=== PATIENT | female | born 2000 | race Two or more races ===

== ENCOUNTER 2024-02-27 16:48 | Emergency (ER) | payer MEDICAID, SELFPAY ==
[2024-02-27 16:49] VITALS: BMI 26.0
[2024-02-27 17:12] VITALS: BP 131/78; PULSE 89; RESP 16; TEMP 37.2; O2SAT 100
--- NOTE | 2024-02-27 17:21 | XR_ITS ---
Examination: OB Transvaginal ultrasound of the pelvis, complete Technique: Transvaginal sonographic images pelvis performed using hugo scale imaging Exam date and time: February 27, 2024 1755 hours INDICATIONS: Vaginal bleeding and pelvic cramping beginning 4 days ago FINDINGS: Uterus 7.7 x 4.1 x 5.3 cm Intrauterine gestational sac 0.3 cm corresponds to 5 weeks 0 day gestational age No cardiac motion No pole Moderate free fluid in the cul-de-sac Right ovary 3.5 x 2.3 x 3.2 cm arterial flow Left ovary 3.6 x 1.8 x 2.0 cm arterial flow IMPRESSION: Empty intrauterine gestational sac corresponding to 5 weeks 0 days gestational age Recommend short-term follow-up transvaginal pelvic sonography to exclude embryonic demise
--- NOTE | 2024-02-27 17:22 | PD.EDRME ---
Rapid Medical Screening Exam RME Arrival date/time: 02/27/24 16:48 23-year-old female presents to the emergency department today complaints of vaginal spotting patient reports having sexual intercourse on the patient reports taking Plan B on the reports he went to the clinic today and she was told she is Chief Complaint: Urogenital-Female Time Seen by Provider: 02/27/24 16:52 Vital signs: Vital Signs Temperature 98.9 F 02/27/24 17:12 Pulse Rate 89 02/27/24 17:12 Respiratory Rate 16 02/27/24 17:12 Blood Pressure 131/78 H 02/27/24 17:12 Pulse Oximetry (%) 100 02/27/24 17:12 Oxygen Delivery Method Room Air 02/27/24 17:12
[2024-02-27 18:01] LABS: Basophils # (Auto) 0.1 Thou/mm3 (0.0-0.2); Basophils % (Auto) 1 % (0-2.5); Eosinophils # (Auto) 0.2 Thou/mm3 (0.0-0.5); Eosinophils % (Auto) 2 % (0-10); Hematocrit 36.9 % (36.0-46.0); Hemoglobin 12.6 g/dL (12.0-16.0); Immature Granulocytes % (Auto) 1 % (0-0); Immature Granulocytes Auto 0.06 Thou/mm3 (0.00-0.00); Lymphocytes # (Auto) 2.6 Thou/mm3 (1.0-4.8); Lymphocytes % (Auto) 27 % (10-50); Mean Corpuscular HGB Conc 34.1 g/dl (31.0-37.0); Mean Corpuscular Hemoglobin 28.9 pg (25.0-35.0); Mean Corpuscular Volume 85 fL (80-100); Monocytes # (Auto) 0.7 Thou/mm3 (0.0-0.8); Monocytes % (Auto) 7 % (0-12); Neutrophils % (Auto) 63 % (37-80); Nucleated Red Blood Cell % 0 /100 WBC (0); Platelet Count 233 Thou/mm3 (140-440); RDW Standard Deviation 39.9 fL (36.4-46.3); Red Blood Count 4.36 Miln/mm3 (4.00-5.20); White Blood Count 9.6 Thou/mm3 (3.6-11.0)
[2024-02-27 18:14] LABS: Collection Type, Urine Clean Catch
[2024-02-27 18:41] LABS: Alanine Aminotransferase 43 U/L (10-49); Albumin, Serum 4.3 gm/dL (3.5-5.0); Albumin/Globulin Ratio 1.5 (1.2-2.2); Alkaline Phosphatase 48 U/L (46-116); Anion Gap 8 (7-16); Aspartate Amino Transferase 27 U/L (0-34); BUN/Creatinine Ratio 13 Ratio (12-20); Beta HCG,Quantitative 2495 mIU/mL (<5.0); Bilirubin,Total 0.3 mg/dL (0.3-1.2); Blood Urea Nitrogen 9 mg/dL (9-23); Calcium 9.2 mg/dL (8.3-10.6); Calcium (Corrected) 9.2 mg/dL (8.5-10.1); Carbon Dioxide 22.6 mMol/L (20.0-31.0); Chloride 106 mMol/L (98-107); Creatinine (Component) 0.7 mg/dL (0.6-1.3); Estimated Creatinine Clearance 105.1 mL/min (>60); Globulin 2.8 gm/dL (2.3-3.5); Glucose 86 mg/dL (74-106); Osmolality,Calculated 271 (275-295); Potassium 3.9 mMol/L (3.4-5.1); Sodium 137 mMol/L (136-145); Total Protein 7.1 gm/dL (5.7-8.2); eGFR > 60 See Note
[2024-02-27 18:51] LABS: Bilirubin,Urine Negative (Negative); Blood,Urine 3+ (Negative); Clarity,Urine Turbid (Clear/Hazy); Color,Urine Lt-Yellow (Lt Yel-Yel); Glucose, Urine Negative (Negative); Ketones,Urine Negative (Negative); Leukocyte Esterase,Urine Negative (Negative); Nitrite,Urine Negative (Negative); Protein,Urine Negative (Neg - Trace); Urobilinogen,Urine Negative mg/dL (0.0-1.0)
[2024-02-27 18:52] LABS: Bacteria,Urine 1+; Culture Indicated,Urine Contaminated; RBC,Urine 4 /hpf (0-3); Squamous Epithelial Cell,Urine 43 /hpf (0-5); WBC,Urine 6 /hpf (0-5)
--- NOTE | 2024-02-27 19:14 | PD.EDVAGBL ---
ED OB Contraction Preg RMI/HPI General Chief complaint: Urogenital-Female Stated complaint: SPOTTING x 3 DAYS AND + PREG TEST Time Seen by Provider: 02/27/24 16:52 Arrival date/time: 02/27/24 16:48 Limitations: no limitations RME / HPI RME / HPI Narrative: 23yof presents to ED for 3 to 4-day history of vaginal spotting. + test at outside clinic today. Patient reports mild pelvic cramping. No fever, n/v, back pain or dysuria reported. No medications or treatments since symptom onset. LMP 01/24/2024. Related Data Previous Rx's ?Medication ?Instructions ?Recorded diphenhydramine HCl 25 mg capsule 25 mg PO Q8H PRN allergic symptoms 07/19/23 (Benadryl) #30 caps Allergies Allergy/AdvReac Type Severity Reaction Status Date / Time No Known Allergies Allergy Verified 02/27/24 16:51 Review of Systems Review of Systems Systems Reviewed: All systems reviewed, normal except as documented Constitutional Constitutional: Denies chills and Denies fever(s) Gastrointestinal Gastrointestinal: Denies nausea and Denies vomiting Genitourinary Genitourinary: Reports abnormal vaginal bleeding, Denies dysuria and Reports pelvic pain Musculoskeletal Musculoskeletal: Denies back pain Past Medical History Surgical History OTHER SURGICAL HX: Denies past surgical history Social History SMOKING STATUS: Never smoker SUBSTANCE USE: does not use ALCOHOL: Never Past Medical History Comments PMH COMMENT: Denies past medical history ED Exam General Limitations: Present no limitations General appearance: Present alert and in no apparent distress Head Head exam: Present atraumatic and normocephalic Eye Eye exam: Present normal appearance, PERRL and EOMI ENT ENT exam: Present normal exam and mucous membranes moist Neck Neck exam: Present normal inspection and full ROM Chest Chest inspection: Present normal inspection and symmetric chest wall rise Respiratory Respiratory exam: Present normal lung sounds bilaterally; Absent respiratory distress Cardiovascular Cardiovascular exam: Present regular rate and normal rhythm Abdominal Exam Abdominal exam: Present soft; Absent distention, tenderness, guarding or rebound Extremities Exam Extremities exam: Present normal inspection and full ROM Neurological Exam Neurological exam: Present alert and oriented X3 Psychiatric Psychiatric exam: Present normal affect and normal mood Skin Skin exam: Present warm, dry, intact and normal color Course Quality Measures none Orders Category Date Time Status US OB transvaginal Stat Exams 02/27/24 17:21 Completed ABO/RH Type Stat Lab 02/27/24 17:38 Completed Beta HCG,Quantitative Stat Lab 02/27/24 17:38 Completed CBC Stat Lab 02/27/24 17:38 Completed Comprehensive Metabolic Panel Stat Lab 02/27/24 17:38 Completed UA, C/S IF [Urinalysis, C/S if Indicated] Stat Lab 02/27/24 18:00 Completed Vital Signs Vital signs: Vital Signs Temperature 98.9 F 02/27/24 17:12 Pulse Rate 89 02/27/24 17:12 Respiratory Rate 16 02/27/24 17:12 Blood Pressure 131/78 H 02/27/24 17:12 Pulse Oximetry (%) 100 02/27/24 17:12 Oxygen Delivery Method Room Air 02/27/24 17:12 Vaginal Bleeding MDM Narrative MDM Narrative: 23yof presents to ED for 3 to 4-day history of vaginal spotting. + test at outside clinic today. Patient reports mild pelvic cramping. No fever, n/v, back pain or dysuria reported. No medications or treatments since symptom onset. LMP 01/24/2024. Patient updated on labs and imaging. Encouraged close follow-up with OB. Patient [facility] appointment at [facility] 03[facility]03/24. Recommended Tylenol prn pelvic pain. Stable for discharge, RTED precautions given. Patient data External records reviewed:: [facility] previous records (07/19/2023 ED visit for [id number]-mouth disease) Clinical information provided by:: patient Social determinants that could affect healthcare access:: none Patient has the following chronic illnesses:: None How is presenting disease/condition affected by chronic disease/condition?: no chronic disease Evaluation data The following diagnostics were reviewed and interpreted by me:: lab results and radiology exam(s) Lab and/or radiology exams considered but not ordered:: None Interpretation Summary: OB ultrasound: Early IUP per my read hCG quant: 2495 Hemoglobin: 12.6 Medications / Prescriptions Medications or Prescriptions considered but not ordered:: No antibiotics recommended at this time Medication administrations:: None Consultations Consultation(s) initiated? (list below): No Diagnosis Vaginal Bleeding Differential Diagnosis: missed , threatened and ectopic without intrauterine Most likely diagnosis given after review of the tests above:: Threatened miscarriage Admission Indicated Admission indicated?: not indicated Admission Request Was there a request for admission?: No Disposition Plan Disposition Plan: Discharge Discharge Attestation Discharge Attestation: The patient and all family members were given an opportunity to ask questions and understood the discharge instructions. Discharge instructions specifically effects, indications for sooner follow up or return to the emergency department, and the expected course of current diagnosis. Patient condition: Stable Discharge Plan Plan Patient Disposition: HOME (Self Care) Patient condition on transfer: Stable Prescriptions/Referrals Prescriptions/Med Rec: No Action diphenhydramine HCl [Benadryl] 25 mg capsule 25 mg PO Q8H PRN (Reason: allergic symptoms) Qty: 30 0RF Referrals: Valerio Mckeon MD [Primary Care Provider] - In 1 week Problem List Clinical Impression: Miscarriage, threatened, early Patient/Caregiver Discharge Instructions Education Materials: ED Possible Miscarriage ... Additional Instructions: Your hCG ( hormone)level today was 2495. Please follow-up with your OB in the following week to have this level rechecked. Print Language: Spanish Stand Alone Forms: Christy Award Info., Patient Portal Info Letter BECKIE/BITUMINOUS DISTRIBUTOR OPERATOR Supervising Physician BECKIE/JEOVANY Supervising Physician: Erin
[2024-02-27 19:55] VITALS: RESP 18
== END 2024-02-27 19:56 | disposition home or self-care (01) ==
PROVIDERS: Nurse Practitioner Primary Care; Emergency Provider Emergency Medicine; PCP Family Medicine
DX: O20.0 Threatened abortion (principal)
CPT/HCPCS: 36415; 76817; 80053; 81001; 84702; 85025; 86900; 86901; 99284

== ENCOUNTER 2024-07-23 18:40 | Emergency (ER) | payer MEDICAID, SELFPAY ==
[2024-07-23 19:34] VITALS: BP 108/69; PULSE 57; RESP 16; TEMP 37.1; O2SAT 99; BMI 23.9
--- NOTE | 2024-07-23 19:42 | EDNOTE_ITS ---
ED Extremity Problem RME/HPI General Chief complaint: Extremity Injury, Lower Stated complaint: LEFT KNEE AND RIGHT POINTER FINGER INJURY Time Seen by Provider: 07/23/24 19:05 Arrival date/time: 07/23/24 18:40 24F with no significant PMH presents to ED with several weeks of intermittent R index finger and L knee pain w/o initial fall/trauma. Patient works a lot with her R hand ([employer]) and is standing all day. Pain is more with overuse/movement. Limitations: no limitations Related Data Previous Rx's ?Medication ?Instructions ?Recorded diphenhydramine HCl 25 mg capsule 25 mg PO Q8H PRN all ergic symptoms 07/19/23 (Benadryl) #30 caps Allergies Allergy/AdvReac Type Severity Reaction Status Date / Time No Known Allergies Allergy Verified 07/23/24 18:44 Review of Systems Review of Systems Systems Reviewed: All systems reviewed, normal except as documented Constitutional Constitutional: Reports system reviewed and no additional complaints, except as documented, Denies fever(s) and Denies headache(s) ENT Ears, Nose, Mouth, and Throat: Denies disequilibrium and Denies headache(s) Cardiovascular Cardiovascular: Reports system reviewed and no additional complaints, except as documented, Denies chest pain and Denies dyspnea Respiratory Respiratory: Reports system reviewed and no additional complaints, except as documented, Denies cough and Denies dyspnea Gastrointestinal Gastrointestinal: Reports system reviewed and no additional complaints, except as documented, Denies abdominal pain, Denies nausea and Denies vomiting Musculoskeletal Musculoskeletal: Reports as per HPI and Reports arthralgias Neurologic Neurologic: Reports system reviewed and no additional complaints, except as documented, Denies confusion, Denies disequilibrium and Denies headache(s) Psychiatric Psychiatric: Denies confusion Past Medical History Past Medical History CARDIAC: Negative Congestive Heart Failure RESPIRATORY: Negative Chronic Obstructive Pulmonary Disease (COPD) GENITOURINARY: Negative Renal Disease ENDOCRINE: Negative Diabetes Mellitus Type 1 or Diabetes Mellitus Type 2 Social History SMOKING STATUS: Never smoker SUBSTANCE USE: does not use ED Exam General Limitations: Present no limitations General appearance: Present alert and in no apparent distress Head Head exam: Present atraumatic Eye Eye exam: Present normal appearance, PERRL and EOMI ENT ENT exam: Present normal exam, normal oropharynx and mucous membranes moist Neck Neck exam: Present normal inspection, full ROM and trachea midline Chest Chest inspection: Present normal inspection and symmetric chest wall rise Respiratory Respiratory exam: Present normal lung sounds bilaterally Cardiovascular Cardiovascular exam: Present regular rate, normal rhythm and normal heart sounds Abdominal Exam Abdominal exam: Present soft and normal bowel sounds Extremities Exam Extremities exam: Present normal inspection and full ROM Back Exam Back exam: Present normal inspection and full ROM Neurological Exam Neurological exam: Present alert, oriented X3 and CN II-XII intact Psychiatric Psychiatric exam: Present normal affect and normal mood Skin Skin exam: Present warm, dry, intact and normal color Course Quality Measures none Vital Signs Vital signs: Vital Signs Temperature 98.7 F 07/23/24 19:34 Pulse Rate 57 L 07/23/24 19:34 Respiratory Rate 16 07/23/24 19:34 Blood Pressure 108/69 07/23/24 19:34 Pulse Oximetry (%) 99 07/23/24 19:34 Oxygen Delivery Method Room Air 07/23/24 19:34 O2 at 99% on RA and WNLs Extremity Problem MDM Narrative MDM Narrative:: 24F with no significant PMH presents to ED with several weeks of intermittent R index finger and L knee pain w/o initial fall/trauma. Patient works a lot with her R hand ([employer]) and is standing all day. Pain is more with overuse/movement. Physical exam reveals no tenderness, redness, or swelling of L knee or R index finger. Pain is with ROM, but is intact. Patient is afebrile, calm, and alert. Likely MSK-related issue such as tendonitis. Bobbin Cleaner given. Patient data External records reviewed:: [facility] previous records Clinical information provided by:: patient Social determinants that could affect healthcare access:: none Patient has the following chronic illnesses:: none How is presenting disease/condition affected by chronic disease/condition?: no chronic disease Evaluation data The following diagnostics were reviewed and interpreted by me:: other (specify) (none) Lab and/or radiology exams considered but not ordered:: not ordered Interpretation Summary: n/a Medications / Prescriptions Medications or Prescriptions considered but not ordered:: not ordered Medication administrations:: n/a Consultations Consultation(s) initiated? (list below): No Diagnosis Extremity Problem Differential Diagnosis: herpes zoster, gout, cellulitis, superficial thrombophlebitis, deep venous thrombosis of upper extremity, lower extremity edema, deep vein thrombosis of lower extremity and other (tendonitis) Most likely diagnosis given after review of the tests above:: tendonitis Admission Indicated Admission indicated?: not indicated Admission Request Was there a request for admission?: No Disposition Plan Disposition Plan: Discharge Discharge Attestation Discharge Attestation: The patient and all family members were given an opportunity to ask questions and understood the discharge instructions. Discharge instructions specifically effects, indications for sooner follow up or return to the emergency department, and the expected course of current diagnosis. Patient condition: Stable Discharge Plan Plan Patient Disposition: HOME (Self Care) Discharge Disposition comment: Stable Prescriptions/Referrals Prescriptions/Med Rec: No Action diphenhydramine HCl [Benadryl] 25 mg capsule 25 mg PO Q8H PRN (Reason: allergic symptoms) Qty: 30 0RF Problem List Clinical Impression: Tendonitis Patient/Caregiver Discharge Instructions Education Materials: ED Tendonitis Additional Instructions: Please follow-up with PCP within 24-48 hours and return immediately if symptoms worsen. If problem persists, recommend outpatient PT and/or MRI follow-up. In the meantime, rest, use ice/heat, and/or compression. Print Language: Mongolian Stand Alone Forms: Work/School Release, Patient Portal Info Letter PA/PROGRESSIVE CARE UNIT REGISTERED NURSE Supervising Physician BECKIE/JEOVANY Supervising Physician: Dr. Galindo
== END 2024-07-23 19:45 | disposition home or self-care (01) ==
LOC: SERX 19:46
PROVIDERS: Emergency Provider Emergency Medicine
DX: M77.9 Enthesopathy, unspecified (principal)
CPT/HCPCS: 99281